=== PATIENT | male | born 1950 | race Caucasian/White ===

== ENCOUNTER → 2021-05-14 10:37 | Outpatient (CLI) | payer MEDICARE, SELFPAY ==
--- NOTE | ~2021-05-14 | XR_ITS ---
EXAMINATION: XR abdomen/kub 1V EXAM DATE: 05/14/2021 10:52 INDICATION: R19.7 - Diarrhea, unspecified. Abd cramping only with bowel movements. diarrhea. TECHNIQUE: Frontal projection of the upper abdomen, frontal projection lower abdomen/pelvis for inter pretation. There is no prior study for comparison. FINDINGS: There is expected amount of colonic stool and gas. No small bowel dilation, nonobstructiv e bowel gas pattern. Calcifications in the pelvis are believed to be phleboliths. There is no orga nomegaly suspected. Mild to moderate bilateral hip osteoarthritis. IMPRESSION: Unremarkable abdomen x-ray exam. Reviewed, dictated and finalized at location A. [employer]
== END ==
PROVIDERS: PCP Family Medicine; Visit Provider Family Medicine
DX: R19.7 Diarrhea, unspecified (principal); M17.0 Bilateral primary osteoarthritis of knee
CPT/HCPCS: 74018